=== PATIENT | male | born 2000 ===

== ENCOUNTER 2021-07-01 15:19 | Emergency (ER) ==
[~2021-07-01] VITALS: Ht 180.3 cm; Wt 77.9 kg
[2021-07-01] MEDS ORDERED: ACETAMINOPHEN TAB 650MG DOSE (2X325MG) PO ONE (16:15)
== END 2021-07-01 21:24 | disposition left against medical advice (07) ==
LOC: M ED 15:19
DX: Z53.21 Procedure and treatment not carried out due to patient leaving prior to being seen by health care provider (principal)